=== PATIENT | female | born 1995 | race African-American/Black ===

== ENCOUNTER 2018-10-15 17:57 | Emergency (ER) | payer OTHER ==
[~2018-10-15] VITALS: Ht 157.5 cm; Wt 74.4 kg
[2018-10-15 18:08] VITALS: BP 158/83
[2018-10-15] MEDS ORDERED: IPRATRPIUM/ALBUTEROL 0.5/2.5MG 3 ML NEBU. NEB ONE (18:30)
[2018-10-15] MEDS ORDERED: PROM118S5 PO (18:53)
[2018-10-15] MEDS ORDERED: ALBU2.5V8 INH (18:53)
[2018-10-15] MEDS ORDERED: PRED50TA PO (18:53)
[2018-10-15] MEDS ORDERED: AZIT250T PO (18:53)
--- NOTE | 2018-10-15 18:54 | PHYS DOC ---
Past Medical History Past Medical History: No Pertinent History (TI BLAIREDGARDO Ahumada APRN) Past Surgical History: No Surgical History (TI BLAIREDGARDO Ahumada APRN) Alcohol Use: Occasionally Drug Use: Marijuana (MIRIAM BLAIR Brandyn CASILLAS) Adult General Chief Complaint Chief Complaint: COUGH HPI HPI Patient is a 23 year old female who presents with a cough times approximately one week. She states that she does have a history of asthma. She states that she has had some shortness of breath as well as a sore throat. She denies fever or body aches. She denies earaches or runny nose. (MIRIAM BLAIR SONJA) Review of Systems Review of Systems Constitutional: Denies fever or chills [] Eyes: Denies change in visual acuity, redness, or eye pain [] HENT: Denies nasal congestion or sore throat [] Respiratory: See history of present illness Cardiovascular: No additional information not addressed in HPI [] GI: Denies abdominal pain, nausea, vomiting, bloody stools or diarrhea [] : Denies dysuria or hematuria [] Musculoskeletal: Denies back pain or joint pain [] Integument: Denies rash or skin lesions [] Neurologic: Denies headache, focal weakness or sensory changes [] Endocrine: Denies polyuria or polydipsia [] All other systems were reviewed and found to be within normal limits, except as documented in this note. (MIRIAM BLAIR Brandyn CASILLAS) Current Medications Current Medications Current Medications Medications (Trade) Dose Ordered Sig/Desmond Start Time Stop Time Status Last Admin Dose Admin Albuterol/ Ipratropium (Duoneb) 3 ml 1X ONCE 10/15/18 18:30 10/15/18 18:31 DC 10/15/18 18:40 3 ML (LEONEL GOMEZ MD) Allergies Allergies Allergies Coded Allergies Type Severity Reaction Last Updated Verified No Known Drug Allergies 06/26/14 No (LEONEL GOMEZ MD) Physical Exam Physical Exam Constitutional: Well developed, well nourished, no acute distress, non-toxic appearance. [] HENT: Normocephalic, atraumatic, bilateral external ears normal, oropharynx moist, no oral exudates, nose normal. [] Eyes: PERRLA, EOMI, conjunctiva normal, no discharge. [] Neck: Normal range of motion, no tenderness, supple, no stridor. [] Cardiovascular:Heart rate regular rhythm, no murmur [] Lungs & Thorax: Bilateral breath sounds decreased to the bases Abdomen: Bowel sounds normal, soft, no tenderness, no masses, no pulsatile masses. [] Skin: Warm, dry, no erythema, no rash. [] Back: No tenderness, no CVA tenderness. [] Extremities: No tenderness, no cyanosis, no clubbing, ROM intact, no edema. [] Neurologic: Alert and oriented X 3, normal motor function, normal sensory function, no focal deficits noted. [] Psychologic: Affect normal, judgement normal, mood normal. [] (MIRIAM BLAIR APRN) Current Patient Data Vital Signs Vital Signs Date Time Temp Pulse Resp B/P (MAP) Pulse Ox O2 Delivery O2 Flow Rate FiO2 10/15/18 18:44 98 Room Air 10/15/18 18:08 98.9 67 18 158/83 (108) 98.9 (LEONEL GOMEZ MD) EKG EKG [] (MIRIAM BLAIR APRN) Radiology/Procedures Radiology/Procedures [] (MIRIAM BLAIR APRN) Course & Med Decision Making Course & Med Decision Making Pertinent Labs and Imaging studies reviewed. (See chart for details) []Following administration of a DuoNeb the patient's risk for symptoms have improved. (MIRIAM BLAIR APRN) Course & Med Decision Making Staff Physician Addendum: I was working in the ER during the course of this patient's visit. I was available for consultation as needed, but I was not directly involved in the care of this patient. (LEONEL GOMEZ MD) Dragon Disclaimer Dragon Disclaimer This electronic medical record was generated, in whole or in part, using a voice recognition dictation system. (MIRIAM BLAIR APRN) Departure Departure Impression: Primary Impression: Bronchitis Disposition: 01 HOME, SELF-CARE Condition: STABLE Referrals: Roxanne ASENCIO MD (PCP) Patient Instructions: Bronchitis Additional Instructions: Take medications as directed. Do not drive or operate heavy machinery while taking the cough syrup. Use the inhaler 4 times daily. Follow-up with your primary care provider if not improving in 4 days or return to the emergency department if worsening. Scripts Prednisone (PREDNISONE) 50 Mg Tablet 1 TAB PO DAILY for bronchitis, #5 TAB Prov: MIRIAM BLAIR APRN 10/15/18 Promethazine Hcl/Codeine (PROMETHAZINE-CODEINE SYRUP) 118 Ml Syrup 5 ML PO Q4-6HRS for cough, #120 ML Prov: MIRIAM BLAIR APRN 10/15/18 Albuterol Sulfate (Proair Hfa) 8.5 Gm Hfa.aer.ad 1 PUFF INH PRN Q6HRS PRN for SHORTNESS OF BREATH, #1 INHALER Prov: MIRIAM BLAIR APRN 10/15/18 Azithromycin (ZITHROMAX) 250 Mg Tablet 1 PKG PO UD for bronchitis, #1 PKG Prov: MIRIAM BLAIR APRN 10/15/18 MIRIAM BLAIR APRN Oct 15, 2018 18:54 LEONEL GOMEZ MD Oct 16, 2018 01:51
== END 2018-10-15 19:00 | disposition home or self-care (01) ==
LOC: ER 17:57
DX: J40 Bronchitis, not specified as acute or chronic (principal)
CPT/HCPCS: 94640; 99283; J7620